=== PATIENT | male | born 1980 | race Two or more races ===

== ENCOUNTER 2023-12-02 17:58 | Emergency (ER) | payer MEDICAID ==
[~2023-12-02] VITALS: Ht 170.2 cm; Wt 84.4 kg
[2023-12-02] MEDS ORDERED: LIDOCAINE 1%-EPI 1:100,000 20 ML VIAL ONE (21:19)
[2023-12-02 23:12] VITALS: BP 126/74; TEMP 98.7; O2SAT 100
== END 2023-12-02 23:12 | disposition home or self-care (01) ==
LOC: ER 18:21
DX: S01.01XA Laceration without foreign body of scalp, initial encounter (principal); Z60.2 Problems related to living alone; X58.XXXA Exposure to other specified factors, initial encounter; Y93.89 Activity, other specified; Y92.89 Other specified places as the place of occurrence of the external cause; Y99.8 Other external cause status
CPT/HCPCS: 12002; 99283; A6403; J3490

== ENCOUNTER 2023-12-09 10:35 | Emergency (ER) | payer MEDICAID ==
[~2023-12-09] VITALS: Ht 170.2 cm; Wt 82.1 kg
[2023-12-09 10:43] VITALS: BP 134/76; TEMP 98.7
[2023-12-09 11:20] VITALS: O2SAT 100
== END 2023-12-09 11:31 | disposition home or self-care (01) ==
LOC: ER 10:35
DX: S01.01XD Laceration without foreign body of scalp, subsequent encounter (principal); Z60.2 Problems related to living alone; X58.XXXD Exposure to other specified factors, subsequent encounter